=== PATIENT | male | born 1955 | race Two or more races ===

== ENCOUNTER → 2017-09-22 10:33 | Outpatient (CLI) | payer OTHER ==
[~2017-09-22 10:33] MED LIST: CIPRO500 MG PO; FENOFIBRATE134 MG PO; OMEGA 3 FISH OI1 CAP PO; SYNTHROID125 MCG PO; TRAM1TAB98 PO
== END | disposition home or self-care (01) ==
LOC: LAB 10:33
DX: R97.20 Elevated prostate specific antigen [PSA] (principal); R31.9 Hematuria, unspecified

== ENCOUNTER 2017-09-23 09:27 | Outpatient (CLI) | payer OTHER | END 2017-09-23 09:37 | disposition home or self-care (01) | LOC: SONOGRAMA 09:27 → MAMO-SONO 10:15 | DX: R31.9 Hematuria, unspecified (principal) ==

== ENCOUNTER 2017-10-16 08:28 | Outpatient (CLI) | payer OTHER | END 2017-10-16 09:22 | disposition home or self-care (01) | LOC: TOM 08:28 | DX: C64.1 Malignant neoplasm of right kidney, except renal pelvis (principal); R31.9 Hematuria, unspecified ==

== ENCOUNTER 2017-10-16 08:30 | Outpatient (CLI) | payer OTHER | END 2017-10-16 09:27 | disposition home or self-care (01) | LOC: RAD 08:30 | DX: C64.1 Malignant neoplasm of right kidney, except renal pelvis (principal); R31.9 Hematuria, unspecified ==

== ENCOUNTER 2017-12-11 08:54 | Outpatient (CLI) | payer OTHER | END 2017-12-11 09:00 | disposition home or self-care (01) | LOC: SONOGRAMA 08:54 | DX: E04.1 Nontoxic single thyroid nodule (principal) ==

== ENCOUNTER → 2020-12-29 | Outpatient (CLI) | payer OTHER | END | disposition home or self-care (01) | LOC: TOM 08:15 | PROVIDERS: ATTEND Internal Medicine Pulmonary Disease | DX: U07.1 COVID-19 (principal); B34.2 Coronavirus infection, unspecified ==

== ENCOUNTER 2021-07-27 07:39 | Emergency (ER) | payer OTHER ==
[~2021-07-27] VITALS: Ht 167.6 cm; Wt 88.9 kg
[2021-07-27] MEDS ORDERED: MULTI VITAMIN1 EACH PO (07:50)
== END 2021-07-27 14:41 | disposition home or self-care (01) ==
LOC: ER 07:39
DX: K29.70 Gastritis, unspecified, without bleeding (principal); R10.84 Generalized abdominal pain

== ENCOUNTER 2021-10-09 21:12 | Emergency (ER) | payer OTHER ==
[~2021-10-09] VITALS: Ht 167.6 cm; Wt 87.1 kg
[~2021-10-09 21:12] MED LIST changes: +MULTI VITAMIN1 EACH PO
== END 2021-10-10 00:24 | disposition home or self-care (01) ==
LOC: ER 21:12
DX: R10.84 Generalized abdominal pain (principal)

== ENCOUNTER 2022-01-07 09:02 | Outpatient (CLI) | payer OTHER | END 2022-01-07 10:08 | disposition home or self-care (01) | LOC: LAB 09:02 | PROVIDERS: ATTEND Radiology Diagnostic Radiology | DX: R10.10 Upper abdominal pain, unspecified (principal) ==

== ENCOUNTER 2022-01-10 07:16 | Outpatient (CLI) | payer OTHER | END 2022-01-10 07:32 | disposition home or self-care (01) | LOC: TOM 07:16 | PROVIDERS: ATTEND Specialist | DX: R10.10 Upper abdominal pain, unspecified (principal) ==

== ENCOUNTER 2022-12-15 04:35 | Emergency (ER) | payer OTHER ==
[~2022-12-15] VITALS: Ht 170.2 cm; Wt 80.3 kg
[2022-12-15] MEDS ORDERED: LEVSIN/SL0.125 MG SL (07:45)
== END 2022-12-15 08:08 | disposition home or self-care (01) ==
LOC: ER 04:35
DX: R10.9 Unspecified abdominal pain (principal)

== ENCOUNTER 2022-12-26 21:42 | Emergency (ER) | payer OTHER ==
[~2022-12-26] VITALS: Ht 167.6 cm; Wt 88.9 kg
[~2022-12-26 21:42] MED LIST changes: +LEVSIN/SL0.125 MG SL
== END 2022-12-27 01:42 | disposition home or self-care (01) ==
LOC: ER 21:42
DX: N50.811 Right testicular pain (principal); E03.9 Hypothyroidism, unspecified; Z90.5 Acquired absence of kidney; I86.1 Scrotal varices

== ENCOUNTER 2024-06-07 07:39 | Outpatient (CLI) | payer OTHER | END 2024-06-07 07:46 | disposition home or self-care (01) | LOC: TOM 07:39 | PROVIDERS: ATTEND Specialist | DX: R10.32 Left lower quadrant pain (principal) ==